=== PATIENT | female | born 1965 | race African-American/Black ===

== ENCOUNTER 2021-05-26 14:21 | Inpatient (IN) | payer MEDICAID, OTHER ==
[~2021-05-26] VITALS: Ht 167.6 cm; Wt 62.2 kg
[2021-05-26] MEDS ORDERED: METHYLPREDNISOLONE SOD SUCC 40 MG/ML VIAL IV ONE (16:15)
[2021-05-26] MEDS ORDERED: IPRATROPIUM/ALBUTEROL 0.5-3(2.5)MG/3ML NEB HHN ONE (16:15)
[2021-05-26 16:22] LABS: BASOPHILS % 0.1 % (0.0-2.0); HEMATOCRIT. 39.8 % (36.0-48.0); HEMOGLOBIN. 13.9 g/dL (12.0-16.0); MEAN CORPUSCULAR HEMOGLOBIN 31.2 pg (28.0-32.0); MEAN PLATELET VOLUME 8.4 fl (7.4-10.4); MONOCYTES % 4.6 % (2.0-8.0); NEUTROPHILS % 66.3 % (40.0-76.0); PLATELET 183 x1000/uL (130-400); RED BLOOD CELL COUNT 4.47 mill/uL (4.2-5.4); RED CELL DISTRIBUTION WIDTH 12.9 % (11.6-14.6)
[2021-05-26 16:25] LABS: CHLORIDE 99 mEq/L (98-107)
[2021-05-26 16:32] LABS: BETA HYDROXYBUTYRATE 0.1 mMol/L (0.0-0.3)
[2021-05-27] MEDS ORDERED: ONDANSETRON HCL 4MG/2ML INJ IV PRN (03:30)
[2021-05-27] MEDS ORDERED: ACETAMINOPHEN 325MG TABLET PO PRN ×2 (03:30)
[2021-05-27] MEDS ORDERED: GUAIFENESIN 200MG/10ML SUGAR FREE UDC PO PRN (03:30)
[2021-05-27] MEDS ORDERED: CLONIDINE 0.1MG TABLET PO PRN (03:30)
[2021-05-27] MEDS ORDERED: ALBUTEROL 6.7GM HFA INHALER ORI PRN (03:30)
[2021-05-27] MEDS ORDERED: DIPHENHYDRAMINE 50MG/ML VIAL IV PRN (03:30)
[2021-05-27] MEDS ORDERED: IPRATROPIUM/ALBUTEROL 0.5-3(2.5)MG/3ML NEB HHN NR (05:00)
[2021-05-27] MEDS ORDERED: ERGOCALCIFEROL 50000UNITS CAPSULE PO SCH (05:00)
[2021-05-27] MEDS ORDERED: AZITHROMYCIN 500 MG in DEXT 5% WATER 250 ML IV SCH (05:00)
[2021-05-27] MEDS ORDERED: LEVOFLOXACIN 500MG PREMIX 100 ML IV SCH (06:00)
[2021-05-27] MEDS: SODIUM CHLORIDE 0.9% INJ 3ML FLUSH IVF SCH ×2 (06:13→13:33)
[2021-05-27 10:00] VITALS: BP 120/70
[2021-05-27] MEDS: ENOXAPARIN 40MG/0.4ML SYR SUBCUT SCH (10:47)
[2021-05-27] MEDS ORDERED: GUAIFENESIN-DM 200MG-20MG/10ML UDC PO PRN (11:30)
[2021-05-27] MEDS ORDERED: DEXAMETHASONE 10 MG/ML VIAL IV SCH (11:30)
[2021-05-27 12:00] VITALS: BP 100/62
[2021-05-27] MEDS: DEXAMETHASONE 4MG/ML 1ML VIAL IV SCH (13:27)
[2021-05-27 16:00] VITALS: BP 110/73
[2021-05-27 20:00] VITALS: BP 102/64
[2021-05-28] VITALS: BP 113/61
[2021-05-28 04:00] VITALS: BP 120/67
[2021-05-28] MEDS: SODIUM CHLORIDE 0.9% INJ 3ML FLUSH IVF SCH ×4 (04:08→21:04)
[2021-05-28 08:00] VITALS: BP 97/61
[2021-05-28] MEDS: ENOXAPARIN 40MG/0.4ML SYR SUBCUT SCH (08:41)
[2021-05-28] MEDS: DEXAMETHASONE 4MG/ML 1ML VIAL IV SCH (08:42)
[2021-05-28] MEDS: BENZONATATE 100MG CAPSULE PO SCH ×2 (11:40→21:04)
[2021-05-28 12:01] VITALS: BP 105/62
[2021-05-28 15:53] VITALS: BP 105/66
[2021-05-28 20:00] VITALS: BP 106/70
[2021-05-29] VITALS: BP 110/73
[2021-05-29 04:00] VITALS: BP 104/55
[2021-05-29] MEDS: BENZONATATE 100MG CAPSULE PO SCH ×2 (05:30→13:05)
[2021-05-29] MEDS: SODIUM CHLORIDE 0.9% INJ 3ML FLUSH IVF SCH ×2 (05:30→13:05)
[2021-05-29 08:00] VITALS: BP 97/60
[2021-05-29] MEDS: ENOXAPARIN 40MG/0.4ML SYR SUBCUT SCH (08:18)
[2021-05-29] MEDS: DEXAMETHASONE 4MG/ML 1ML VIAL IV SCH (08:19)
[2021-05-29 11:48] VITALS: BP 103/63
[2021-05-29 16:11] VITALS: BP 103/63
== END 2021-05-29 17:00 | disposition home or self-care (01) | DRG 871 ==
LOC: ER 14:21 → MICUSO 18:49 → EDBEDREQTM 18:51 → EDBEDREQ 18:51 → 7WST 05-27 07:42
PROVIDERS: ADMIT Internal Medicine; ATTEND Internal Medicine
DX: A41.89 Other specified sepsis (principal); U07.1 COVID-19; J96.01 Acute respiratory failure with hypoxia; J12.82 Pneumonia due to coronavirus disease 2019; J45.909 Unspecified asthma, uncomplicated; F41.9 Anxiety disorder, unspecified; Z90.710 Acquired absence of both cervix and uterus; Z88.0 Allergy status to penicillin
CPT/HCPCS: 36415; 71045; 80053; 82010; 82728; 83605; 83615; 83880; 84145; 84484; 85025; 85379; 86140; 93005; 99285; J0456; J1100; J1650; J1956; J2920; J7060; U0003; U0005

== ENCOUNTER 2024-09-22 17:52 | Emergency (ER) | payer OTHER ==
[~2024-09-22] VITALS: Ht 162.6 cm; Wt 70.0 kg
[2024-09-22 18:00] VITALS: BP 124/81; PULSE 54; RESP 18; TEMP 98.4; O2SAT 98
[2024-09-22 19:25] LABS: BASOPHILS % 0.4 % (0.0-2.0); HEMATOCRIT. 39.5 % (36.0-48.0); HEMOGLOBIN. 13.6 g/dL (12.0-16.0); LYMPHOCYTES % 51.4 % (20.0-50.0); MEAN CORPUSCULAR HEMOGLOBIN 31.2 pg (28.0-32.0); MEAN CORPUSCULAR HGB CONC 34.3 g/dL (31.0-37.0); MEAN CORPUSCULAR VOLUME 90.8 fL (81.0-99.0); MEAN PLATELET VOLUME 8.7 fl (7.4-10.4); MONOCYTES % 8.3 % (2.0-8.0); NEUTROPHILS % 37.9 % (40.0-76.0); PLATELET 229 x1000/uL (130-400); RED BLOOD CELL COUNT 4.36 mill/uL (4.2-5.4); WHITE BLOOD COUNT 3.5 x1000/uL (4.5-11.0)
[2024-09-22 19:37] LABS: CHLORIDE 106 mEq/L (98-107); POTASSIUM 3.6 mEq/L (3.5-5.1); SODIUM 140 mEq/L (136-145)
[2024-09-22 19:38] LABS: CALCIUM 9.8 mg/dL (8.7-10.4); CARBON DIOXIDE 30 mEq/L (21-32)
[2024-09-22 19:43] LABS: CREATININE 0.6 mg/dL (0.6-1.0); GLUCOSE 104 mg/dL (70-105)
[2024-09-22 20:07] LABS: TROPONIN I HIGH SENSITIVITY < 4 ng/L (3.0-34); UREA NITROGEN BLOOD < 5 mg/dL (9-23)
[2024-09-22] MEDS ORDERED: ALBU05 NEB (23:30)
[2024-09-22] MEDS ORDERED: DEXT30SU17 MT (23:30)
[2024-09-22] MEDS ORDERED: IBUP-1523 MT (23:30)
[2024-09-22] MEDS ORDERED: P50 MT (23:30)
[2024-09-22] MEDS ORDERED: TOPUD MT (23:30)
== END 2024-09-23 03:25 | disposition home or self-care (01) ==
LOC: ER 17:52
DX: J40 Bronchitis, not specified as acute or chronic (principal); Z88.0 Allergy status to penicillin; Z90.710 Acquired absence of both cervix and uterus; Z87.440 Personal history of urinary (tract) infections; Z79.899 Other long term (current) drug therapy
CPT/HCPCS: 36415; 71045; 80048; 84484; 85025; 93005; 99285